=== PATIENT | male | born 1970 | race Caucasian/White ===

== ENCOUNTER 2017-02-12 14:47 | Emergency (ER) | payer SELFPAY ==
[2017-02-12 15:28] VITALS: BP 133/84
[2017-02-12] MEDS ORDERED: Albuterol HFA INHALER* 8 gm MDI INH ONE (16:16)
[2017-02-12] MEDS ORDERED: predniSONE TAB* 20 MG PO ONE (16:16)
--- NOTE | 2017-02-12 16:17 | UC ---
Respiratory Complaint HPI - HPI Summary HPI Summary: 46 yo male with 2-3 day hx of cough no f/c no n/v/d no CP or SOB Unable to sleep at night due to cough no myalgias - History of Current Complaint Chief Complaint: UCRespiratory Stated Complaint: COUGH Time Seen by Provider: 02/12/17 15:59 Hx Obtained From: Patient Onset/Duration: Gradual Onset Severity Initially: Mild Severity Currently: Moderate Pain Intensity: 2 Pain Scale Used: 0-10 Numeric Character: Cough: Productive - at times Aggravating Factors: Recumbent Position Alleviating Factors: Nothing Associated Signs And Symptoms: Positive: Wheezing, URI, Nasal Congestion. Negative: Dyspnea, Fever, Chills, Pleuritic Chest Pain, Hemoptysis, Dizziness, Calf Pain, Calf Swelling, Edema, Hoarseness, Sinus Discomfort - Allergies/Home Medications Allergies/Adverse Reactions: Allergies Allergy/AdvReac Type Severity Reaction Status Date / Time No Known Allergies Allergy Verified 02/12/17 15:23 PMH/Surg Hx/FS Hx/Imm Hx Previously Healthy: Yes Respiratory History Of: Reports: Bronchitis, Pneumonia GI/ History Of: Reports: Kidney Stones - 18 YEARS AGO, Renal Disease - only left kidney is functional since - Surgical History Surgical History: Yes Surgery Procedure, Year, and Place: COLOSTOMY 2010 [place]. BLADDER SURGERY A CHILD. ANAL SURGERY [place] CHILD. [place] [facility] [place] MULITIPLE BLADDER SURGERY- born with neurogenic bladder. Hernia surgery Oct 2016 - Family History Known Family History: Positive: Hypertension - Social History Alcohol Use: None Substance Use Type: None Smoking Status (MU): Never Smoked Tobacco - Immunization History Most Recent Influenza Vaccination: 2016 Most Recent Pneumonia Vaccination: N/A Review of Systems Constitutional: Negative Skin: Negative Eyes: Negative ENT: Negative Respiratory: Cough Cardiovascular: Negative Gastrointestinal: Negative Genitourinary: Negative Motor: Negative Neurovascular: Negative Musculoskeletal: Negative Neurological: Negative Psychological: Negative All Other Systems Reviewed And Are Negative: Yes Physical Exam Triage Information Reviewed: Yes Appearance: Well-Appearing, No Pain Distress, Well-Nourished Vital Signs: Initial Vital Signs Temp 97.6 F 02/12/17 15:24 Pulse 79 02/12/17 15:24 Resp 18 02/12/17 15:24 BP 133/84 02/12/17 15:24 Pulse Ox 98 02/12/17 15:24 Vital Signs Reviewed: Yes Eyes: Positive: Conjunctiva Clear ENT: Positive: Hearing grossly normal, TMs normal, Other: - no sinus tenderness. Negative: Nasal congestion, Nasal drainage, TM bulging, TM dull, TM red, Tonsillar swelling, Tonsillar exudate, Trismus, Muffled/hoarse voice Dental: Negative: Dental Fracture @, Abscess @ Neck: Positive: Supple, Nontender, No Lymphadenopathy Respiratory: Positive: Chest non-tender, No respiratory distress, No accessory muscle use, Respiratory distress, Wheezing - with forced expiration Cardiovascular: Positive: RRR, No Murmur. Negative: Tachycardia, Bradycardia Musculoskeletal: Positive: ROM Intact, No Edema Neurological: Positive: Alert Psychological Exam: Normal Skin Exam: Normal UC Diagnostic Evaluation - Laboratory O2 Sat by Pulse Oximetry: 98 - normal/not hypoxic Respiratory Course/Dx - Differential Dx/Diagnosis Provider Diagnoses: acute bronchitis with bronchospasm Discharge - Discharge Plan Condition: Stable Disposition: HOME Prescriptions: Amoxicillin (*) [Amoxicillin 875 MG (*)] 875 mg PO BID #20 tab Benzonatate CAP* [Tessalon 100 MG CAP*] 100 - 200 mg PO TID PRN #28 cap PRN Reason: Cough Prednisone [Deltasone] 40 mg PO DAILY #8 tab Patient Education Materials: Acute Bronchitis (ED) Referrals: Harjinder Mike DO [Primary Care Provider] - If Needed (recheck in 3-6 days if not better) Additional Instructions: rest fluids mucinex or robitussin recheck for worsening symptoms
== END 2017-02-12 16:35 | disposition home or self-care (01) ==
LOC: UCCORT 14:47
DX: J20.9 Acute bronchitis, unspecified (principal)
CPT/HCPCS: 99213; A9270-GY; G0463; J7512

== ENCOUNTER 2018-07-27 09:58 | Emergency (ER) | payer BC, OTHER ==
--- OUTSIDE RECORDS SUMMARY | 2018-07-27 11:01 | XMS REPORT ---
:1970 External Reference #:[id number] Author Organization [facility] Address [address], [address] [place] [address] Phone [phone] Care Team Providers Name Role Phone Harjinder Mike DO Care Team Information Medical Driver Unavailable Harjinder Mike DO Primary Care Physician Unavailable Payers Type Date Identification Numbers Payment Provider Subscriber Commercial Policy Number: [id number] Suhas Cali Winston PayID: [id number] [address] [address] [place] [address] Problems Description No Information Family History Date Family Member(s) Problem(s) Comments Father Wore Glasses Father due to Unknown Causes () Mother Alive Mother 73 Mother Wears Glasses First Daughter Alive First Daughter 10 Second Daughter Alive Second Daughter 10 First Brother Alive First Brother 39 First Sister Alive First Sister 42 Social History Type Date Description Comments Marital Status ETOH Use Denies alcohol use Smoking Patient has never smoked Recreational Drug Use Denies Drug Use Allergies, Adverse Reactions, Alerts Date Description Reaction Status Severity Comments 06/16/2018 NKDA active Medications Medication Date Status Form Strength Qnty SIG Indications Ordering Provider Losartan 00/00 Active Tablets 100-12.5m sig 1 po Mike, Potassium/Hydrochlor /0000 g qd Harjinder othiazide DO Trazodone HCL 0000 Active Tablets 300mg sig 1 po Mike, /0000 bid DO Harjinder Duloxetine HCL [address] 60mg Take One Unknown /0000 Part Capsule By Mouth bid Ropinirole HCL 0000 Active Tablets 2mg Take Two Unknown /0000 Tablets By Mouth Twice A Day Glipizide ER 0000 Active Tablets 10mg Take One Unknown /0000 ER 24HR Tablet By Mouth bid Keppra 00 Active Tablets 250mg sig 1 po Unknown /0000 qd Oxycodone HCL 00 Hx Tablets 5mg Mike, /0000 Harjinder, - DO 06/16 Amlodipine Besylate Hx Tablets 5mg Take One Unknown /0000 Tablet By - Mouth 06/16 Sulindac Hx Tablets 200mg Take One Unknown /0000 Tablet By - Mouth 06/16 Twice A Day Neomycin Sulfate Hx Tablets 500mg Take 2 Unknown /0000 Tablets By - Mouth 3 06/16 Times Per Prep Paperwork Hydrochlorothiazide Hx Tablets 25mg Take One Unknown /0000 Tablet By - Mouth 06/16 Every Ibuprofen Hx Tablets 800mg Take One Unknown /0000 Tablet By - Mouth 06/16 Every Hours as Needed Levetiracetam Hx Tablets 500mg Take 1 Unknown /0000 Tablet By - Mouth AT 06/16 Bedtime For One Week Then Increase To 1 Tab Vital Signs Date Vital Result Comment 09/04/2011 Height 65.5 inches 5'5.50" Weight 207.00 lb Results Description No Information Procedures Date CPT Code Description Status 06/16/2018 80201 Eye Exam New Patient Comprehensive Completed 09/04/2011 05574 Asp./Injection major joint Completed Plan of Care Future Appointment(s):10/20/2018 9:15 am - Rubio Muro MD at [email or web address]/ 13/2018 - Rbuio Muro MDH40.013 Open angle with borderline findings, low risk , bilateralComments:- 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
--- NOTE | 2018-07-27 12:04 | UC ---
Respiratory Complaint HPI - HPI Summary HPI Summary: Patient has surgery at the end of june on his solon, he now has a colostomy and a large surgical incision that is erythemic and has 2 pockets of discoloration, wound vac is in place. he is complaining of cough and sob, hard to take a deep breath, general abdominal pain. fatique. his BP was low on arrival - History of Current Complaint Chief Complaint: UCRespiratory Stated Complaint: COUGH Time Seen by Provider: 07/27/18 11:04 Hx Obtained From: Patient Onset/Duration: Sudden Onset, Lasting Weeks Timing: Constant Severity Initially: Moderate Severity Currently: Moderate Pain Intensity: 4 Character: Cough: Nonproductive Aggravating Factors: Exertion Alleviating Factors: Nothing Associated Signs And Symptoms: Positive: Dyspnea - Risk Factors Pulmonary Embolism Risk Factors: Recent Bedrest, Recent Surgery - Allergies/Home Medications Allergies/Adverse Reactions: Allergies Allergy/AdvReac Type Severity Reaction Status Date / Time ketorolac [From Toradol] Allergy Hallucinati Verified 07/27/18 11:12 ons Home Medications: Home Medications Amlodipine/Valsartan/Hcthiazid [Jigxt-Myhpe-Nvkw 5-160-12.5 mg] 0.5 tab PO DAILY 07/27/18 [History Confirmed 07/27/18] Amoxicillin/Clavulanate TAB* [Augmentin TAB 875*] 875 mg PO BID 07/27/18 [ History Confirmed 07/27/18] Duloxetine HCl [Cymbalta] 20 mg PO DAILY 07/27/18 [History Confirmed 07/27/18] Sunitinib Malate [Sutent] 37.5 mg PO BID 07/27/18 [History Confirmed 07/27/18] glipiZIDE TAB* [Glucotrol TAB*] 5 mg PO DAILY 07/27/18 [History Confirmed ] traMADol TAB* [Ultram*] 2 tab PO Q6HR PRN 07/27/18 [History Confirmed 07/27/18] traZODone TAB* [Desyrel TAB*] 300 mg PO BEDTIME 07/27/18 [History Confirmed ] PMH/Surg Hx/FS Hx/Imm Hx Previously Healthy: Yes - Surgical History Surgical History: Yes Surgery Procedure, Year, and Place: COLOSTOMY 2010 [place]. BLADDER SURGERY A CHILD. ANAL SURG[place]. [place] [facility] [place] MULITIPLE BLADDER SURGERY- born with neurogenic bladder. Hernia surgery Oct 2016 - Family History Known Family History: Positive: None, Hypertension - Social History Alcohol Use: None Substance Use Type: Prescribed Smoking Status (MU): Never Smoked Tobacco - Immunization History Most Recent Influenza Vaccination: 2016 Most Recent Pneumonia Vaccination: N/A Review of Systems Constitutional: Negative Skin: Negative Eyes: Negative ENT: Negative Respiratory: Shortness Of Breath, Cough Cardiovascular: Negative Gastrointestinal: Abdominal Pain - due to recent surgery, wound vac in place Genitourinary: Negative Motor: Negative Neurovascular: Negative Musculoskeletal: Negative Neurological: Negative All Other Systems Reviewed And Are Negative: Yes Physical Exam Triage Information Reviewed: Yes Appearance: Ill-Appearing, Pain Distress, Obese Vital Signs: Initial Vital Signs Temp 97.6 F 07/27/18 11:19 Pulse 75 07/27/18 11:19 Resp 18 07/27/18 11:19 BP 99/69 07/27/18 11:19 Pulse Ox 97 07/27/18 11:19 Vital Signs Reviewed: Yes Eye Exam: Normal ENT Exam: Normal Dental Exam: Normal Neck exam: Normal Neck: Positive: Supple, Nontender, No Lymphadenopathy Respiratory: Positive: Chest non-tender, Lungs clear, Normal breath sounds - slightly diminished in bilateral bases Cardiovascular Exam: Normal Cardiovascular: Positive: RRR, No Murmur, Pulses Normal Abdomen Description: Positive: Other: - wound vac, site asymtpomatice, no evidence of infected site Bowel Sounds: Positive: Present Musculoskeletal Exam: Normal Musculoskeletal: Positive: Strength Intact, ROM Intact, No Edema Neurological Exam: Normal Neurological: Positive: Alert, Muscle Tone Normal Psychological Exam: Normal Skin Exam: Normal UC Diagnostic Evaluation - Laboratory O2 Sat by Pulse Oximetry: 97 Respiratory Course/Dx - Course Course Of Treatment: hx obtained, exam performed ,meds reviewed, chest xray completed, consulted with Dr Cisneros, recommend follow up in ER, patient is in agreement, transported via [facility] to [facility], Peripheral IV inserted - Differential Dx/Diagnosis Differential Diagnosis/HQI/PQRI: Asthma, Bronchitis, CHF, Lower Resp Infection, Pulmonary Embolism Provider Diagnoses: COugh, Surgical wound infection, SOB, Hypotension - Physician Notification/Consults Discussed Patient Care With: Fabio Mcfadden Instructed by Provider To: MD Will See In ED Discharge - Sign-Out/Discharge Documenting (check all that apply): Patient Departure All imaging exams completed and their final reports reviewed: Yes - Discharge Plan Condition: Stable Disposition: TRANS HIGHER LVL OF CARE FAC Referrals: Harjinder Mike DO [Primary Care Provider] - - Billing Disposition and Condition Condition: STABLE Disposition: Trans Higher Lvl of Care Fac
--- NOTE | 2018-07-27 12:17 | RAD ---
INDICATION: Cough and shortness of breath. COMPARISON: Most recent comparison chest x-rays dated March 19, 2014 TECHNIQUE: PA and lateral views of the chest were obtained. FINDINGS: The heart and mediastinum are normal in size and contour. The lungs are grossly clear. There is no evidence of large pleural effusion. Visualized bones are normal for the patient's age. There is no radiographic evidence of free air beneath the diaphragm IMPRESSION: No radiographic evidence of acute cardiopulmonary disease.
[2018-07-27 12:52] VITALS: BP 112/68
== END 2018-07-27 13:03 | disposition short-term general hospital (02) ==
LOC: UCCORT 09:58
DX: R05 Cough (principal); T81.4XXA Infection following a procedure, initial encounter; R06.02 Shortness of breath; I95.9 Hypotension, unspecified; Z88.6 Allergy status to analgesic agent; Z93.3 Colostomy status
CPT/HCPCS: 71046; 99213; G0463